=== PATIENT | male | born 1950 | race Caucasian/White ===

== ENCOUNTER 2020-05-21 10:48 | Outpatient (CLI) | payer BC, MEDICARE ==
[2020-05-21 17:46] LABS: SARS-CoV-2 PCR by NAA Not Detected (NotDetected)
== END 2020-05-21 10:49 | disposition home or self-care (01) ==
LOC: LABBT 10:48
PROVIDERS: ATTEND Internal Medicine Gastroenterology
DX: Z01.812 Encounter for preprocedural laboratory examination (principal); Z20.822 Contact with and (suspected) exposure to COVID-19
CPT/HCPCS: 87635; U0003; U0005

== ENCOUNTER 2020-05-26 06:11 | Day surgery (SDC) | payer BC, MEDICARE ==
[2020-05-25 15:14] VITALS: BMI 35.6
[2020-05-26] MEDS ORDERED: PROPOFOL 200 MG/20 ML VIAL ONE (09:16)
== END 2020-05-26 10:35 | disposition home or self-care (01) ==
LOC: SDC 06:11
PROVIDERS: ATTEND Internal Medicine Gastroenterology
PROC: 0DBK8ZX Excision of Ascending Colon, Via Natural or Artificial Opening Endoscopic, Diagnostic (ICD-10-PCS; principal; 2020-05-26)
PROC: 0DBN8ZX Excision of Sigmoid Colon, Via Natural or Artificial Opening Endoscopic, Diagnostic (ICD-10-PCS; 2020-05-26)
DX: Z12.11 Encounter for screening for malignant neoplasm of colon (principal); D12.2 Benign neoplasm of ascending colon; D12.5 Benign neoplasm of sigmoid colon; K62.1 Rectal polyp; K64.8 Other hemorrhoids; E78.5 Hyperlipidemia, unspecified; I10 Essential (primary) hypertension; M17.9 Osteoarthritis of knee, unspecified; Z79.899 Other long term (current) drug therapy
CPT/HCPCS: 88305; J2704

== ENCOUNTER 2021-07-08 10:55 | Outpatient (CLI) | payer MEDICARE | END 2021-07-08 10:56 | disposition home or self-care (01) | LOC: BICRAD 10:55 | PROVIDERS: ATTEND Chiropractor | DX: M25.561 Pain in right knee (principal); M25.562 Pain in left knee; G89.29 Other chronic pain ==

== ENCOUNTER 2022-09-16 10:38 | Outpatient (CLI) | payer MEDICARE | END 2022-09-16 10:39 | disposition home or self-care (01) | LOC: RAD 10:38 | PROVIDERS: ATTEND Chiropractor | DX: M54.50 Low back pain, unspecified (principal); G89.29 Other chronic pain; M47.816 Spondylosis without myelopathy or radiculopathy, lumbar region | CPT/HCPCS: 72100 ==

== ENCOUNTER 2023-04-06 06:15 | Day surgery (SDC) | payer MEDICARE ==
[2023-03-30 13:10] VITALS: BMI 37.5
[2023-03-30 13:52] LABS: Hematocrit 46.1 % (38.8-50.0); Hemoglobin 15.5 g/dL (13.5-17.5); Mean Corpuscular HGB CONC 33.6 g/dL (32.0-36.0); Mean Corpuscular Hemoglobin 30.5 pg (27.0-33.0); Mean Corpuscular Volume 90.7 fl (81.2-95.1); Mean Platelet Volume 9.7 fl (7.4-10.4); Platelet Count 284 10x3/uL (150-450); Red Blood Cell (RBC) Count 5.08 10x6/uL (4.32-5.72); White Blood Cell (WBC) Count 5.8 10x3/uL (3.5-10.5)
[2023-03-30 14:02] LABS: Anion Gap 10 mmol/L (10-20); BUN (Urea Nitrogen) 19 mg/dL (8.4-25.7); Calc. Creatinine Clearance 146 mL/min (70-130); Calcium 8.4 mg/dL (7.8-10.44); Carbon Dioxide 24 mmol/L (23-31); Chloride 108 mmol/L (98-107); Estimated GFR 93; Glucose 105 mg/dL (80-115); Potassium 4.4 mmol/L (3.5-5.1); Sodium 138 mmol/L (136-145)
[2023-03-30 14:10] LABS: Prothrombin Time 10.9 sec (9.5-12.1)
[2023-04-06] MEDS ORDERED: Heparin 25,000 units/D5W 500 ML ONE (06:43)
[2023-04-06] MEDS ORDERED: Protamine Sulfate 50 MG/5 ML VIAL ONE (06:43)
[2023-04-06] MEDS ORDERED: Heparin 10,000 UNITS/ 10 ML VIAL ONE (06:43)
[2023-04-06] MEDS ORDERED: Propofol 500 MG/50 ML VIAL ONE (07:26)
[2023-04-06] MEDS ORDERED: SUGAMMADEX SODIUM 200 MG/2 ML VIAL ONE (07:26)
[2023-04-06] MEDS ORDERED: fentaNYL 50 mcg/mL 1 mL Vial ONE ×3 (07:30→11:21)
[2023-04-06] MEDS ORDERED: Propofol 1,000 MG/100 ML VIAL IV ONE ×2 (07:31→09:05)
[2023-04-06] MEDS ORDERED: Vasopressin 20 UNITS/ML VIAL ONE (08:34)
[2023-04-06] MEDS ORDERED: Phenylephrine 10 MG/ML VIAL ONE (08:52)
== END 2023-04-06 13:15 | disposition home or self-care (01) ==
LOC: SDC 06:15
PROVIDERS: ATTEND Internal Medicine Cardiovascular Disease
PROC: 02583ZZ Destruction of Conduction Mechanism, Percutaneous Approach (ICD-10-PCS; principal; 2023-04-06)
PROC: 4A0274Z Measurement of Cardiac Electrical Activity, Via Natural or Artificial Opening (ICD-10-PCS; 2023-04-06)
PROC: B246ZZ4 Ultrasonography of Right and Left Heart, Transesophageal (ICD-10-PCS; 2023-04-06)
DX: I48.0 Paroxysmal atrial fibrillation (principal); I08.1 Rheumatic disorders of both mitral and tricuspid valves; I49.3 Ventricular premature depolarization; I10 Essential (primary) hypertension; E78.2 Mixed hyperlipidemia; Z79.01 Long term (current) use of anticoagulants; Z79.899 Other long term (current) drug therapy; Z96.652 Presence of left artificial knee joint
CPT/HCPCS: 80048; 85027; 85347 ×2; 85610; 93005; 93312; 93656; C1732; C1759; C1760; C1893; C1894 ×3; C2630; J3010; 92960; 93010; 93657; J1644; J2371; J2704; J2720

== ENCOUNTER 2023-08-07 08:12 | Outpatient (CLI) | payer MEDICARE | END 2023-08-07 08:13 | disposition home or self-care (01) | LOC: SCSMRI 08:12 | PROVIDERS: ATTEND Chiropractor | DX: M47.816 Spondylosis without myelopathy or radiculopathy, lumbar region (principal); M17.12 Unilateral primary osteoarthritis, left knee; M51.26 Other intervertebral disc displacement, lumbar region; M51.36 Other intervertebral disc degeneration, lumbar region; M51.37 Other intervertebral disc degeneration, lumbosacral region; M48.061 Spinal stenosis, lumbar region without neurogenic claudication; M48.07 Spinal stenosis, lumbosacral region; M47.815 Spondylosis without myelopathy or radiculopathy, thoracolumbar region; M47.817 Spondylosis without myelopathy or radiculopathy, lumbosacral region; S83.242A Other tear of medial meniscus, current injury, left knee, initial encounter; S83.512A Sprain of anterior cruciate ligament of left knee, initial encounter; M94.262 Chondromalacia, left knee; M25.762 Osteophyte, left knee | CPT/HCPCS: 72148 ==